=== PATIENT | female | born 1965 | race African-American/Black ===

== ENCOUNTER → 2023-07-12 | Day surgery (SDC) | payer MEDICARE, MEDICAID ==
[~2023-07-12] VITALS: Ht 163.8 cm; Wt 62.1 kg
[~2023-07-12] MED LIST: ASPI-1160 PO; ATOR40TA70 PO; Albuterol NEB; BACITRACIN 14GM TUBE TOP ONE; BUPIVACAINE HCL/PF 0.5% (5MG/ML) 10ML ONE; CALC0.253 PO; CARV12.545 PO; CLOP75TA33 PO; DOCU-150 PO; DOXA1TAB2 PO; FENTANYL CITRATE/PF 50MCG/ML 2ML VIAL ONE; FURO40TA5 PO; HEPARIN SODIUM 1,000 UNIT/1ML VIAL IV ONE; HYDR25TA78 PO; ISOS30TA91 PO; LIDOCAINE HCL 1% 10 MG/ML 10ML VIAL ONE; METO2.5T2 PO; NIFE-33 PO; POLYMYXIN B SULFATE 500000 UNITS/VIAL ONE; PROPOFOL 200MG/20ML VIAL IV ONE; PROT40 PO; PROTAMINE SULFATE 10MG/ML VIAL 25ML IV ONE; SENN-257 PO; SEVE800T25 PO; SEVELAMER PO; SODIUM CHLORIDE 0.9% 500 ML IV SCH; SPIR25TA6 PO; THROMBIN (BOVINE) 5000 UNITS/VIAL TOP ONE; TRAM50TA3 PO
[2023-07-12 09:50] LABS: BASOPHILS % 0.9 % (0.0-2.0); EOSINOPHILS % 6.1 % (0.0-5.0); HEMOGLOBIN. 10.1 g/dL (12.0-16.0); LYMPHOCYTES % 16.6 % (20.0-50.0); MEAN CORPUSCULAR HEMOGLOBIN 31.4 pg (28.0-32.0); MEAN CORPUSCULAR HGB CONC 33.7 g/dL (31.0-37.0); MEAN CORPUSCULAR VOLUME 93.1 fL (81.0-99.0); NEUTROPHILS % 67.4 % (40.0-76.0); PLATELET 163 x1000/uL (130-400); RED BLOOD CELL COUNT 3.22 mill/uL (4.2-5.4); RED CELL DISTRIBUTION WIDTH 15.2 % (11.6-14.6); WHITE BLOOD COUNT 4.1 x1000/uL (4.5-11.0)
[2023-07-12 10:00] LABS: PARTIAL THROMBOPLASTIN TIME 30.2 sec (23.4-31.0); PROTHROMBIN TIME 11.4 sec (9.6-11.0)
[2023-07-12 10:25] LABS: CALCIUM 9.2 mg/dL (8.7-10.4); POTASSIUM 3.9 mEq/L (3.5-5.1)
[2023-07-12] MEDS: HYDROMORPHONE HCL/PF 2MG/ML CPJ IV PRN (15:31)
[2023-07-12] MEDS: LABETALOL 5MG/ML SYR 20 MG/4 ML SYRINGE IV PRN (15:48)
[2023-07-12 17:28] VITALS: BP 149/82; PULSE 98; RESP 16
[2023-07-12] MEDS: IBUPROFEN 200MG TABLET PO PRN (17:28)
== END | disposition home or self-care (01) ==
LOC: OR 08:52
PROVIDERS: ATTEND Surgery Vascular Surgery
DX: I77.0 Arteriovenous fistula, acquired (principal); I13.2 Hypertensive heart and chronic kidney disease with heart failure and with stage 5 chronic kidney disease, or end stage renal disease; I50.9 Heart failure, unspecified; N18.6 End stage renal disease; J44.9 Chronic obstructive pulmonary disease, unspecified; E78.5 Hyperlipidemia, unspecified; I25.10 Atherosclerotic heart disease of native coronary artery without angina pectoris; F17.210 Nicotine dependence, cigarettes, uncomplicated; Z79.899 Other long term (current) drug therapy; Z98.890 Other specified postprocedural states; Z88.8 Allergy status to other drugs, medicaments and biological substances
CPT/HCPCS: 80048; 85025; 85610; 85730; 36415; 93005; 36819; J3010; J3490 ×5; J1644; J2704; J2720; J1170; Z7610 ×29; A4217 ×2; A4565